=== PATIENT | male | born 1950 | race Caucasian/White ===

== ENCOUNTER 2020-06-19 02:26 | Emergency (ER) | payer OTHER, BC ==
[2020-06-19 02:58] VITALS: BP 137/113; PULSE 136; TEMP 102.8; BMI 24.6
[2020-06-19] MEDS ORDERED: VANCOMYCIN HCL 1,500 MG in DEXTROSE 5%-WATER - 500 ML IVPB ONE (04:55)
[2020-06-19] MEDS ORDERED: PIPERACILLIN/TAZOB 4.5 GM 4.5 GM in DEXTROSE 5%-WATER 100 ML IVPB ONE (04:56)
[2020-06-19] MEDS ORDERED: LACTATED RINGERS SOLUTION 1000 ML INFUS.BAG IV ONE (04:57)
[2020-06-19] MEDS ORDERED: TRIPLE LUMEN FLUSH 4 ML ML IVPUSH PRN (04:57)
[2020-06-19] MEDS ORDERED: ACETAMINOPHEN 1000 MG/100 ML VIAL (NON FORMULARY) IVPB ONE (04:57)
[2020-06-19 05:13] LABS: VENOUS BASE EXCESS -24.8 mmol/L (-2-2); VENOUS O2 SATURATION 63.7 % (70-80); VENOUS PCO2 36.7 mmHg (38-52)
[2020-06-19 05:16] LABS: VENOUS PH 6.876 (7.310-7.410)
[2020-06-19 05:19] LABS: BASO % 0.2 % (0-2.0); CORRECTED WBC 0.26 K/mm3; LYMPH % 66.5 % (8-40); MCHC 32.6 g/dl (32.0-35.9); MEAN CELL VOLUME 104.1 fl (80-96); MONO % 1.3 % (3.8-10.2); PLATELET COUNT 67 K/MM3 (134-434); RDW 15.8 % (11.9-15.9)
[2020-06-19] MEDS ORDERED: ACETAMINOPHEN INJECTION 100 ML IVPB ONE (05:19)
[2020-06-19] MEDS ORDERED: PIPERACILLIN/TAZOB 4.5 GM 4.5 GM/100 ML BAG IVPB ONE (05:19)
[2020-06-19] MEDS ORDERED: RAPID SEQUENCE INTUBATION KIT NR ONE (05:25)
[2020-06-19] MEDS ORDERED: VANCOMYCIN PREMIX 1.5 GM 1,500 MG/300 ML BAG IVPB ONE (05:30)
[2020-06-19 05:33] LABS: HEMATOCRIT 19.8 % (35.4-49); HEMOGLOBIN 6.5 GM/dL (11.7-16.9); PROTHROMBIN TIME (PATIENT) 51.2 SEC (9.7-13.0); WHITE BLOOD COUNT 0.3 K/mm3 (4.0-10.0)
[2020-06-19 05:35] LABS: ACTIVATED PTT 38.3 SECONDS (25.2-36.5)
[2020-06-19 06:03] LABS: LACTIC ACID 16.9 mmol/L (0.4-2.0)
[2020-06-19 06:32] LABS: ALBUMIN 1.9 g/dl (3.4-5.0); ALK PHOS 62 U/L (45-117); ANION GAP 25 MMOL/L (8-16); BILIRUBIN,TOTAL 1.1 mg/dL (0.2-1); BLOOD UREA NITROGEN 48.4 mg/dL (7-18); CHLORIDE 98 mmol/L (98-107); CO2 8 mmol/L (21-32); CREATININE 3.1 mg/dL (0.55-1.3); GLUCOSE,RANDOM 90 mg/dL (74-106); SGOT/AST 1424 U/L (15-37); SGPT/ALT 872 U/L (13-61); SODIUM 130 mmol/L (136-145); TOT PROT 4.8 g/dl (6.4-8.2)
[2020-06-19 06:34] LABS: INR 4.42 (0.83-1.09)
[2020-06-19 07:15] LABS: CALCIUM 6.9 mg/dL (8.5-10.1)
[2020-06-19 08:38] LABS: ANISOCYTOSIS 1+; MACROCYTOSIS 1+; PLATELET ESTIMATE DECREASED
== END 2020-06-19 08:30 | disposition expired ==
LOC: JER 02:26
PROC: 3E0333Z Introduction of Anti-inflammatory into Peripheral Vein, Percutaneous Approach (ICD-10-PCS; principal; 2020-06-19)
PROC: 3E03329 Introduction of Other Anti-infective into Peripheral Vein, Percutaneous Approach (ICD-10-PCS; 2020-06-19)
PROC: 3E03329 Introduction of Other Anti-infective into Peripheral Vein, Percutaneous Approach (ICD-10-PCS; 2020-06-19)
DX: A41.9 Sepsis, unspecified organism (principal); I46.9 Cardiac arrest, cause unspecified; J96.01 Acute respiratory failure with hypoxia; R41.82 Altered mental status, unspecified
CPT/HCPCS: 36415; 70450-TC; 71045-TC-FY; 72170-TC-FY; 80053; 82803; 83605; 84484; 85025; 85610; 85730; 87040; 87186; 93005; 93010; 99291